=== PATIENT | male | born 1985 | race Asian ===

== ENCOUNTER 2017-07-21 04:29 | Inpatient (IN) | payer OTHER ==
[2017-07-21] MEDS: ONDANSETRON 4 MG INJ IV (05:11)
[2017-07-21] MEDS: SODIUM CHLORIDE 0.9% 1L BAG IV* (05:12)
[2017-07-21 05:42] LABS: ABNORMAL IP MESSAGE 1; HEMATOCRIT 32.2 % (42.0-52.0); HEMOGLOBIN 9.9 g/dl (14.0-18.0); MEAN CORPUSCULAR HEMOGLOBIN 22.4 pg (29.0-33.0); MEAN CORPUSCULAR HGB CONC 30.7 g/dl (32.0-37.0); MEAN PLATELET VOLUME 10.6 fl (7.4-10.4); NUCLEATED RED BLOOD CELLS% 1.1 /100WBC (0.0-0.0); PLATELET COUNT 162 10^3/UL (140-415); POSITIVE DIFF @See below; RED BLOOD COUNT 4.41 10^6/ul (4.70-6.10); RED CELL DISTRIBUTION WIDTH 18.1 % (11.5-14.5)
[2017-07-21 05:42] LABS: WHITE BLOOD COUNT 33.2 10^3/ul (4.8-10.8)
[2017-07-21 05:48] LABS: ADD MAN DIFF? YES
[2017-07-21] MEDS ORDERED: NORepinephrine 8MG/250 ML (PMX 250 ML ×2 (05:53→12:38)
[2017-07-21 05:58] LABS: INR 3.21; PROTIME 33.3 Sec (12.2-14.2); PT RATIO 2.6
[2017-07-21 05:59] LABS: PARTIAL THROMBOPLASTIN TIME 33.3 Sec (25.0-35.0)
[2017-07-21 06:08] LABS: ALBUMIN 2.9 g/dl (3.3-4.9); ALBUMIN/GLOBULIN RATIO 0.74; ALKALINE PHOSPHATASE 173 IU/L (42-121); ANION GAP 29 (8-16); BILIRUBIN,INDIRECT 2.7 mg/dl (0-1.1); BILIRUBIN,TOTAL 3.1 mg/dl (0.2-1.3); BLOOD UREA NITROGEN 23 mg/dl (7-20); CALCIUM 8.2 mg/dl (8.4-10.2); CHLORIDE 94 mmol/L (97-110); CREATININE 1.68 mg/dl (0.61-1.24); POTASSIUM 5.4 mmol/L (3.5-5.1); SODIUM 127 mmol/L (135-144); TOTAL PROTEIN 6.8 g/dl (6.1-8.1)
[2017-07-21 06:12] LABS: LACTIC ACID 16.5 mmol/L (0.5-2.0)
[2017-07-21] MEDS: SOD CHLORIDE 0.9% 1,000 ML IV (06:32)
[2017-07-21] MEDS: SOD CHLORIDE 0.9% 100 ML (06:32)
[2017-07-21] MEDS: DEXTROSE 50% 50 ML SYRINGE IV (06:32)
[2017-07-21] MEDS: IOHEXOL 100 ML (06:32)
[2017-07-21 06:38] LABS: GLUCOSE 44 mg/dl (70-220)
[2017-07-21 06:39] LABS: CARBON DIOXIDE 9 mmol/L (21-31)
[2017-07-21] MEDS: DEXTROSE 10% 1,000 ML IV (06:43)
[2017-07-21] MEDS: CEFEPIME 2GM/50 ML (PMX) 50 ML IVPB (06:45)
[2017-07-21 06:48] LABS: ANISOCYTOSIS 1+ (0-0); BAND NEUTROPHILS #M 3.9 10^3/ul (0.0-0.6); BAND NEUTROPHILS % (M) 12 % (0-4); ERYTHROBLAST% (NRBC) (M) 3 % (0-0); GIANT THROMBO% (M) 3 % (0-0); LYMPHOCYTES #M 5.6 10^3/ul (0.8-2.9); LYMPHOCYTES % (M) 17 % (15-51); MICROCYTOSIS 1+ (0-0); MONOCYTE #M 1.3 10^3/ul (0.3-0.9); MONOCYTES % (M) 4 % (0-11); PLATELET ESTIMATE NORMAL; PLATELET MORPHOLOGY COMMENT @See below; SEG NEUT #M 23.5 10^3/ul (1.7-7.5); SEGMENTED NEUTROPHILS (M) % 67 % (39-77); SMUDGE%M 20 % (0-0)
[2017-07-21] MEDS ORDERED: ROCURONIUM 50 MG INJ (07:00)
[2017-07-21] MEDS ORDERED: DEXTROSE 50% 50 ML SYRINGE (07:00)
[2017-07-21] MEDS ORDERED: NA BICARBONATE 8.4% 50 ML SYG ×2 (07:00→11:50)
[2017-07-21] MEDS ORDERED: EPINEPHrine 0.1 MG/ML SYG ×2 (07:00→12:32)
[2017-07-21] MEDS ORDERED: ETOMIDATE 20 MG INJ (07:00)
[2017-07-21] MEDS ORDERED: ATROPINE 1 MG/10 ML SYRINGE (07:00)
[2017-07-21 07:12] LABS: ADD UMIC YES; UR AMORPHOUS CRYSTAL FEW /HPF (NONE SEEN); UR ASCORBIC ACID 40 mg/dL (NEGATIVE); UR BACTERIA FEW /HPF (NONE SEEN); UR BILIRUBIN (Dip) NEGATIVE (NEGATIVE); UR BLOOD (Dip) 2+ mg/dL (NEGATIVE); UR CLARITY CLOUDY (CLEAR); UR COLOR AMBER (YELLOW); UR GLUCOSE (Dip) NEGATIVE (NEGATIVE); UR KETONES (Dip) TRACE mg/dL (NEGATIVE); UR LEUKOCYTE ESTERASE (Dip) NEGATIVE Leu/ul (NEGATIVE); UR MUCUS FEW /HPF (NONE SEEN); UR NITRITE (Dip) NEGATIVE (NEGATIVE); UR RBC 8 /HPF (0-5); UR SPECIFIC GRAVITY (Dip) 1.019 (1.003-1.030); UR TOTAL PROTEIN (Dip) 2+ mg/dl (NEGATIVE); UR UROBILINOGEN (Dip) 2+ mg/dL (NEGATIVE); UR WBC 6 /HPF (0-5)
[2017-07-21 07:20] LABS: AADO2 Arterial 219.4 mmHg (7.0-24.0); Arterial Base Excess -22.9 mmol/L (-3.0-3); Arterial Blood Gas Oxygen Sat 99.3 mmHG (95.0-98.0); Arterial COHb 0.3 % (0.0-3.0); Arterial Fraction of Oxyhgb 98.6 % (93.0-99.0); Arterial HCO3 5.8 mmol/L (22.0-26.0); Arterial MetHb 0.4 % (0.0-1.5); Arterial Total Hemglobin 10.6 g/dl (12.0-18.0); Arterial pCO2 21.3 mmhg (35-45); MODE MASK - BIPAP; Site Right Brachial
[2017-07-21 07:22] LABS: LIPASE 311 U/L (23-300)
[2017-07-21 07:23] LABS: AADO2 Arterial 573.7 mmHg (7.0-24.0); Arterial Base Excess -24.7 mmol/L (-3.0-3); Arterial Blood Gas Oxygen Sat 92.5 mmHG (95.0-98.0); Arterial COHb 0.3 % (0.0-3.0); Arterial Fraction of Oxyhgb 91.7 % (93.0-99.0); Arterial HCO3 6.4 mmol/L (22.0-26.0); Arterial MetHb 0.6 % (0.0-1.5); Arterial Total Hemglobin 8.6 g/dl (12.0-18.0); Arterial pCO2 31.7 mmhg (35-45); Blood Gas Mean Airway Pressure 12; MODE VENT - AC; Site Right Brachial
[2017-07-21] MEDS: VANCOMYCIN 1 GM (PMX) 250 ML IVPB (07:25)
[2017-07-21 07:42] LABS: ASPARTATE AMINO TRANSFERASE 5968 IU/L (15-46)
[2017-07-21] MEDS: PIPER-TAZO 3.375 GM IV (PMX) 50 ML IV (07:55)
[2017-07-21 08:02] LABS: LACTIC ACID 16.1 mmol/L (0.5-2.0)
[2017-07-21 08:17] LABS: ALANINE AMINOTRANSFERASE 3847 IU/L (13-69); TROPONIN-I 0.122 ng/ml (0.00-0.12)
[2017-07-21 08:27] LABS: HAAIG REFLEX REFLEX FILED
[2017-07-21] MEDS: PROPOFOL 100 ML IV (08:46)
[2017-07-21 08:51] LABS: PHOSPHORUS 9.6 mg/dl (2.5-4.9)
[2017-07-21 09:24] LABS: HEPATITIS B SURFACE ANTIGEN NEGATIVE (NEGATIVE)
[2017-07-21] MEDS: DEXTROSE 5% IV (09:25)
[2017-07-21] MEDS: ACETYLCYSTEINE IV (09:25)
[2017-07-21 09:39] LABS: LACTIC ACID 15.6 mmol/L (0.5-2.0)
[2017-07-21 09:42] LABS: HEPATITIS B CORE ANTIBODY NEGATIVE (NEGATIVE); HEPATITIS C VIRAL ANTIBODY NEGATIVE (NEGATIVE)
[2017-07-21 09:43] LABS: HIV 1&2 ANTIBODY NEGATIVE (NEGATIVE)
[2017-07-21 09:52] LABS: ACETAMINOPHEN < 10.0 ug/ml (10.0-30.0)
[2017-07-21] MEDS ORDERED: NITROGLYCERIN (SL) 0.4 MG TAB SL (11:30)
[2017-07-21] MEDS ORDERED: ALBUTEROL/IPRATROPIUM (NEB) 3 ML AMP HHN (11:30)
[2017-07-21] MEDS ORDERED: NACL 0.9% 3 ML SYG IV (11:30)
[2017-07-21] MEDS ORDERED: morphine 2 MG INJ IV (11:30)
[2017-07-21] MEDS ORDERED: ACETAMINOPHEN 325 MG TAB PO (11:30)
[2017-07-21] MEDS ORDERED: MAGNESIUM HYDROXIDE 30ML CUP PO (11:30)
[2017-07-21] MEDS ORDERED: NA PHOSPHATE/BIPHOS 133 ML ENEMA PR (11:30)
[2017-07-21] MEDS ORDERED: HYDROCODONE/APAP (5/325) TAB PO (11:30)
[2017-07-21] MEDS ORDERED: NORepinephrine 32 MG in DEXTROSE 5% 218 ML IV (11:30)
[2017-07-21] MEDS ORDERED: LORAZEPAM 0.5 MG TAB PO (11:30)
[2017-07-21] MEDS ORDERED: ONDANSETRON 4 MG INJ IV (11:30)
[2017-07-21] MEDS ORDERED: DOCUSATE SODIUM 100 MG CAP PO (11:30)
[2017-07-21 11:33] LABS: SALICYLATE < 1.0 mg/dl (5.0-30.0)
[2017-07-21 11:51] LABS: LACTIC ACID 16.2 mmol/L (0.5-2.0)
[2017-07-21] MEDS ORDERED: PHENYLephrine 20MG IN 250 ML 250 ML IV (12:00)
[2017-07-21] MEDS ORDERED: SODIUM BICARBONATE (IV ADD) 150 MEQ in DEXTROSE 5% 1,000 ML IV (12:00)
[2017-07-21] MEDS: PHENYLephrine 160 MG in DEXTROSE 5% 484 ML IV (12:02)
[2017-07-21] MEDS ORDERED: DAPTOMYCIN 1,000 MG in SOD CHLORIDE 0.9% 100 ML IVPB (12:30)
[2017-07-21 12:34] LABS: AMPHETAMINE/METHAMPHETAMINE Negative (NEGATIVE); OPIATES Negative (NEGATIVE)
[2017-07-21 12:35] LABS: BARBITURATES Negative (NEGATIVE); BENZODIAZEPINES Negative (NEGATIVE); CANNABINOIDS Negative (NEGATIVE); COCAINE Negative (NEGATIVE)
[2017-07-21] MEDS: EPINEPHRINE 4 MG in D5W 250 ML IV (12:48)
[2017-07-21 13:14] LABS: CREATINE KINASE 152 IU/L (23-200)
[2017-07-21 13:26] LABS: CK INDEX 2.2
[2017-07-21 13:33] LABS: CK-MB 3.32 ng/ml (0.0-2.4)
[2017-07-21 13:34] LABS: FREE T4 (FREE THYROXINE) 2.11 ng/dl (0.79-2.35)
[2017-07-21 13:35] LABS: TROPONIN-I 0.159 ng/ml (0.00-0.12)
[2017-07-21 13:46] LABS: AADO2 Arterial 618.3 mmHg (7.0-24.0); Arterial Base Excess -18.1 mmol/L (-3.0-3); Arterial COHb 0.3 % (0.0-3.0); Arterial Fraction of Oxyhgb 19.5 % (93.0-99.0); Arterial HCO3 13.9 mmol/L (22.0-26.0); Arterial MetHb 2.3 % (0.0-1.5); Arterial Total Hemglobin 8.4 g/dl (12.0-18.0); Arterial pCO2 70.3 mmhg (35-45); MODE VENT - AC; Site Femoral
[2017-07-21] MEDS ORDERED: CEFEPIME 2GM/50 ML (PMX) 50 ML IVPB ×2 (14:00→16:00)
[2017-07-21] MEDS ORDERED: HEPARIN 5,000 UNIT/0.5 ML VIAL SC (14:00)
[2017-07-21] MEDS ORDERED: [UNRECOGNIZED DRUG - OTHER] IV (14:00)
[2017-07-21] MEDS ORDERED: SODIUM BICARBONATE IV (14:00)
[2017-07-21] MEDS ORDERED: FAMOTIDINE 20 MG INJ IV (21:00)
[2017-07-23 12:31] LABS: SMOOTH MUSCLE AB SCREEN NEGATIVE (NEGATIVE)
[2017-07-23 13:56] LABS: ANA SCREEN NEGATIVE (NEGATIVE)
== END 2017-07-21 13:38 | disposition expired | DRG 871 ==
LOC: SDS 14:07 → E/R 04:29 → CCL 13:38 → ICU 07:44 → CCL 13:38 → SDS 13:38
PROC: 5A1223Z Performance of Cardiac Pacing, Continuous (ICD-10-PCS; principal; 2017-07-21 13:30)
PROC: 5A1935Z Respiratory Ventilation, Less than 24 Consecutive Hours (ICD-10-PCS; 2017-07-21 13:36)
PROC: 0BH17EZ Insertion of Endotracheal Airway into Trachea, Via Natural or Artificial Opening (ICD-10-PCS; 2017-07-21 13:36)
DX: A41.9 Sepsis, unspecified organism (principal); R65.21 Severe sepsis with septic shock; J96.00 Acute respiratory failure, unspecified whether with hypoxia or hypercapnia; I46.9 Cardiac arrest, cause unspecified; I33.9 Acute and subacute endocarditis, unspecified; N17.9 Acute kidney failure, unspecified; E87.2 Acidosis; J98.11 Atelectasis; I50.30 Unspecified diastolic (congestive) heart failure; I45.9 Conduction disorder, unspecified; E87.5 Hyperkalemia; E16.2 Hypoglycemia, unspecified; D64.9 Anemia, unspecified; K76.89 Other specified diseases of liver; I11.0 Hypertensive heart disease with heart failure
CPT/HCPCS: 31500; 33210; 36415; 36600; 71010; 71275; 75635; 76705; 76937; 80053; 80306; 80307; 81001; 82525; 82550; 82553; 82803; 82962; 83605; 83690; 84100; 84439; 84443; 84484; 85025; 85610; 85730; 86038; 86255; 86703; 86704; 86709; 86803; 86850; 86900; 86901; 87040; 87086; 87340; 92950; 92953; 93005; 93306; 94002; 94660; 96374; 96375; 99291-25